=== PATIENT | female | born 1985 | race Caucasian/White ===

== ENCOUNTER → 2016-07-17 | Outpatient (CLI) | payer OTHER ==
[~2016-07-17] MED LIST: COUMADIN 5MG5 MG/TAB PO; NO HOME MEDICATIONS; NORCO 325 MG-51 TAB PO; PERCOCET 325 MG1 TA2 PO; PRINCIPEN500 MG PO; SMZ/TMPDS PO; ZOFRAN ODT4 MG PO
== END ==
LOC: WCC 11:00
DX: S81.812A Laceration without foreign body, left lower leg, initial encounter (principal); E66.01 Morbid (severe) obesity due to excess calories
CPT/HCPCS: 13919; 17719; 27515; A6212; G0463

== ENCOUNTER → 2016-07-20 | Outpatient (CLI) | payer OTHER | LOC: WCC 14:30 | DX: S81.812A Laceration without foreign body, left lower leg, initial encounter (principal); E66.01 Morbid (severe) obesity due to excess calories | CPT/HCPCS: 13919; 17719; 18867; 27515; A6209; A6212; G0463 ==

== ENCOUNTER → 2016-07-27 | Outpatient (CLI) | payer OTHER | LOC: WCC 08:35 | DX: S81.812A Laceration without foreign body, left lower leg, initial encounter (principal); E66.01 Morbid (severe) obesity due to excess calories; F17.210 Nicotine dependence, cigarettes, uncomplicated | CPT/HCPCS: 17717; 17719; 27510; 27517; A6197; A6207; A6212; G0463 ==

== ENCOUNTER → 2016-08-03 | Outpatient (CLI) | payer OTHER | LOC: WCC 08:40 | DX: S81.812A Laceration without foreign body, left lower leg, initial encounter (principal); E66.01 Morbid (severe) obesity due to excess calories | CPT/HCPCS: 17717; 17719; A6212; G0463 ==

== ENCOUNTER → 2016-08-10 | Outpatient (CLI) | payer OTHER | LOC: WCC 08:14 | DX: S81.812A Laceration without foreign body, left lower leg, initial encounter (principal); E66.01 Morbid (severe) obesity due to excess calories; Z87.891 Personal history of nicotine dependence | CPT/HCPCS: 17717; 17719; A6212; G0463 ==

== ENCOUNTER → 2016-08-17 | Outpatient (CLI) | payer OTHER | LOC: WCC 08:29 | DX: S81.812A Laceration without foreign body, left lower leg, initial encounter (principal); E66.01 Morbid (severe) obesity due to excess calories | CPT/HCPCS: 17719; 27510; 27517; A6197; A6207; A6212; G0463 ==

== ENCOUNTER → 2016-08-24 | Outpatient (CLI) | payer OTHER | LOC: WCC 08:44 | DX: S81.812A Laceration without foreign body, left lower leg, initial encounter (principal); E66.01 Morbid (severe) obesity due to excess calories | CPT/HCPCS: 17717; 27510; A6197; A6212; G0463 ==

== ENCOUNTER → 2016-08-31 | Outpatient (CLI) | payer OTHER | LOC: WCC 08:31 | DX: S81.812A Laceration without foreign body, left lower leg, initial encounter (principal) | CPT/HCPCS: 17717; 27515; A6212; G0463 ==

== ENCOUNTER → 2016-09-14 | Outpatient (CLI) | payer SELFPAY | LOC: WCC 08:26 | DX: S81.812A Laceration without foreign body, left lower leg, initial encounter (principal) | CPT/HCPCS: 17717; 27510; A6197; A6212; G0463 ==

== ENCOUNTER → 2016-09-21 | Outpatient (CLI) | payer SELFPAY | LOC: WCC 08:29 | DX: S81.812D Laceration without foreign body, left lower leg, subsequent encounter (principal) | CPT/HCPCS: 27517; A6207; G0463 ==

== ENCOUNTER → 2016-09-28 | Outpatient (CLI) | payer SELFPAY | LOC: WCC 11:44 | DX: S81.802D Unspecified open wound, left lower leg, subsequent encounter (principal) | CPT/HCPCS: 17717; A6212; G0463 ==

== ENCOUNTER 2016-11-09 13:19 | Emergency (ER) | payer SELFPAY ==
[~2016-11-09] VITALS: Ht 175.3 cm; Wt 145.5 kg
[2016-11-09] MEDS ORDERED: NORCO 325 MG-51 TAB PO (15:15)
[2016-11-09 15:28] VITALS: BP 154/93; PULSE 108; TEMP 98.7
== END 2016-11-09 15:30 | disposition home or self-care (01) ==
LOC: COL.ER 13:19
DX: M23.91 Unspecified internal derangement of right knee (principal)
CPT/HCPCS: J1170; L1830